=== PATIENT | female | born 1940 | race Caucasian/White ===

== ENCOUNTER 2022-01-30 15:59 | Emergency (ER) | payer SELFPAY ==
[~2022-01-30] VITALS: Ht 162.6 cm; Wt 81.6 kg
[2022-01-30] MEDS ORDERED: ADENOSINE 6 MG/2 ML VIAL ONE (16:10)
--- NOTE | 2022-01-30 16:10 | NUR ---
RECEIVED PT 81YRS FEMALE FROM HOME C/O CHEST AND PALPATION ON AND OFF SINCES last night awake and alert on sob or chest pain EKG DONE AT BED SIDE
--- NOTE | 2022-01-30 16:19 | NUR ---
DKG DONE SHOWING A. 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 PENN ( PT SON ) AND DR. GREEN AND EKG XIOMY
[2022-01-30] MEDS ORDERED: ADENOSINE 6 MG/2 ML VIAL IVP ONE (16:30)
[2022-01-30 16:40] LABS: BASOPHILS % (AUTO) 0.4 % (0.0-2.0); EOSINOPHILS % (AUTO) 0.6 % (0.0-6.0); HEMATOCRIT 43 % (33-45); HEMOGLOBIN 14.3 g/dL (11.5-14.8); LYMPHOCYTES # (AUTO) 1.6 K/uL (0.8-4.8); LYMPHOCYTES % (AUTO) 16.9 % (20.0-44.0); MEAN CORPUSCULAR HGB CONC 33 g/dl (31.0-36.0); MEAN CORPUSCULAR VOLUME 89 fL (82-100); MONOCYTES # (AUTO) 0.8 K/uL (0.1-1.30); MONOCYTES % (AUTO) 8.8 % (2.0-12.0); NEUTROPHILS # (AUTO) 6.8 K/uL (1.8-8.9); NEUTROPHILS % (AUTO) 73.3 % (43.0-81.0); PLATELET COUNT (AUTO) 246 K/uL (150-450); RED BLOOD CELL COUNT(AUTO) 4.82 MIL/uL (4.0-5.2); WHITE BLOOD COUNT (AUTO) 9.2 K/uL (4.3-11.0)
--- NOTE | 2022-01-30 16:41 | NUR ---
D/C INSTRACTION GIVEN TO PT AND SON
--- NOTE | 2022-01-30 16:41 | NUR ---
AND FAALOOW UP CARE
[2022-01-30 16:56] LABS: CALCIUM, SERUM 8.9 mg/dL (8.5-10.1); CREATININE 0.8 mg/dL (0.6-1.3); POTASSIUM 4.2 mmol/L (3.5-5.1)
[2022-01-30 17:07] LABS: ALBUMIN 3.6 g/dL (3.4-5.0); BILIRUBIN,DIRECT 0.1 mg/dL (0.0-0.2); BILIRUBIN,TOTAL 0.3 mg/dL (0.2-1.0); MAGNESIUM 2.1 mg/dL (1.8-2.4); TOTAL PROTEIN, SERUM 7.2 g/dL (6.4-8.2)
[2022-01-30 17:16] VITALS: BP 133/89
[2022-01-30 17:42] LABS: THYROID STIMULATING HORMONE 3.409 uIU/mL (0.358-3.74)
== END 2022-01-30 17:17 | disposition home or self-care (01) ==
LOC: ER 16:00
DX: I48.92 Unspecified atrial flutter (principal); E03.9 Hypothyroidism, unspecified
CPT/HCPCS: 99284; 96374; 93005 ×2; 85025; 80048; 80076; 83735; 36415; 84443; 83880; J0153; J7030

== ENCOUNTER 2022-07-24 13:58 | Outpatient (CLI) | payer SELFPAY ==
[2022-07-24 14:31] LABS: BASOPHILS % (AUTO) 0.3 % (0.0-2.0); EOSINOPHILS % (AUTO) 0.3 % (0.0-6.0); HEMATOCRIT 40 % (33-45); LYMPHOCYTES # (AUTO) 1.5 K/uL (0.8-4.8); LYMPHOCYTES % (AUTO) 13.6 % (20.0-44.0); MEAN CORPUSCULAR HGB CONC 33 g/dl (31.0-36.0); MEAN CORPUSCULAR VOLUME 91 fL (82-100); MONOCYTES # (AUTO) 1.1 K/uL (0.1-1.30); MONOCYTES % (AUTO) 10.3 % (2.0-12.0); NEUTROPHILS # (AUTO) 8.1 K/uL (1.8-8.9); NEUTROPHILS % (AUTO) 75.5 % (43.0-81.0); PLATELET COUNT (AUTO) 269 K/uL (150-450); RED BLOOD CELL COUNT(AUTO) 4.36 MIL/uL (4.0-5.2); WHITE BLOOD COUNT (AUTO) 10.7 K/uL (4.3-11.0)
[2022-07-24 14:52] LABS: ALANINE AMINOTRANSFERASE 19 U/L (12-78); ALBUMIN 3.3 g/dL (3.4-5.0); ALKALINE PHOSPHATASE 65 U/L (46-116); ASPARTATE AMINOTRANSFERASE 15 U/L (15-37); BILIRUBIN,TOTAL 0.5 mg/dL (0.2-1.0); CALCIUM, SERUM 8.4 mg/dL (8.5-10.1); CARBON DIOXIDE 25 mmol/L (21-32); CHLORIDE 102 mmol/L (98-107); GLUCOSE 131 mg/dL (74-106); POTASSIUM 4.1 mmol/L (3.5-5.1); SODIUM SERUM 138 mmol/L (136-145); TOTAL PROTEIN, SERUM 7.1 g/dL (6.4-8.2); UREA NITROGEN, BLOOD 9 mg/dL (7-18)
== END 2022-07-24 23:59 | disposition home or self-care (01) ==
LOC: XR 13:58
PROVIDERS: ATTEND Internal Medicine
DX: R06.02 Shortness of breath (principal)
CPT/HCPCS: 36415; 71045-TC; 80053-TC; 80061-TC; 83880; 84439-TC; 84443-TC; 85025-TC